=== PATIENT | female | born 1930 | race Caucasian/White ===

== ENCOUNTER 2017-02-13 12:51 | Emergency (ER) | payer MEDICARE, OTHER ==
[~2017-02-13] VITALS: Ht 177.8 cm; Wt 102.1 kg
[2017-02-13 13:55] VITALS: BP 166/95
== END 2017-02-13 14:03 | disposition home or self-care (01) ==
LOC: ED 12:51
DX: T44.7X1A Poisoning by beta-adrenoreceptor antagonists, accidental (unintentional), initial encounter (principal); Z94.7 Corneal transplant status; Z95.0 Presence of cardiac pacemaker; Y92.9 Unspecified place or not applicable